=== PATIENT | male | born 1940 | race Caucasian/White ===

== ENCOUNTER 2016-07-29 15:54 | Emergency (ER) | payer MEDICARE, OTHER ==
[~2016-07-29] VITALS: Ht 175.3 cm; Wt 109.1 kg
[~2016-07-29 15:54] MED LIST: BETA1TAB19 PO; CHOL10008 PO; [UNRECOGNIZED DRUG - CODE] PO
[2016-07-29 16:04] VITALS: BP 138/85; PULSE 101; RESP 20; O2SAT 93
--- NOTE | 2016-07-29 16:13 | ED.REPORT ---
HPI-Dyspnea / Wheezing Date of Service Jul 29, 2016 ED Provider: Daniel Feliz MD Patient is a 76 year old male with a history of frequent pneumonia who presents to the ED complaining of L sided chest pain onset 2 weeks ago. Associated symptoms include SOB, fatigue, productive cough with yellow sputum, fever, and decreased appetite. He denies pleuritic pain, vomiting, diarrhea, or any other symptoms. Nursing Notes Stated Complaint: SHORTNESS OF BREATH,LEFT LUNG PAIN Chief Complaint: Respiratory Distress Nursing Notes Reviewed: Yes Allergies: Coded Allergies: No Known Allergies (Verified , 12/15/15) Scheduled Cholecalciferol (Vitamin D3) (Vitamin D3) 1,000 Unit Tab.chew 3,000 UNIT PO DAILY Levofloxacin (Levaquin) 750 Mg Tablet 750 MG PO DAILY Vit A/Vit C/Vit E/Zinc/Copper (Preservision Areds Tablet) 1 Each Tablet 2 EACH PO DAILY Scheduled PRN Hydrocodone-Acetaminophen 2.5-325 mg (Hydrocodone-Acetaminophen 2.5-325 mg) 1 Each Tablet 1 EACH PO Q4H PRN PRN For Pain General Time Seen by MD: 16:12 Chief Complaint Chest pain Hx Obtained From: Patient Onset Occurred: More than a week ago... (2 weeks) Symptom Duration: Since onset Similar Sx Previous: Yes Past Medical History Past Medical History 1. 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 2. History of pneumonia. Reports: Hypertension, Denies: Cancer, Congestive heart failure, Diabetes mellitus, Stroke Past Surgical History 1. Tonsillectomy. 2. Left rotator cuff repair. 3. Removal of spinal spurs. 4. Finger repair Reports: Cataract surgery Family History Mother of dementia. Father who of a [place]. Brother and sister with unknown history. 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 Alcohol Use: 1-3 per day Drug Use: Denies drug use Ambulatory Status Independent Review of Systems +decreased appetite Constitutional: Reports: Fatigue, Fever Respiratory: Reports: Prod cough, yellow, Shortness of breath, Denies: Pleuritic pain Cardiovascular: Reports: Chest pain Complete sys rev & neg: except as marked. GI: Denies: Diarrhea, Vomiting Physical Exam Initial Vital Signs Vital Signs (First) Date Time Temp Pulse Resp B/P Pulse Ox O2 Delivery O2 Flow Rate FiO2 07/29/16 16:04 37.4 101 20 138/85 93 Room Air Head / Eyes: Atraumatic, Normocephalic Abdomen / GI: Soft, Non-tender Skin: Warm, Dry Neurologic: Alert, Oriented, Nonfocal Psychiatric: Mood/affect normal, Behavior normal, Normal thought content General/Constitutional: Awake, Alert, Well developed Neck: Full range of motion Respiratory / Chest: Atraumatic, Breath sounds NL, Breath sounds = bilat, No respiratory distress Cardiovascular: Heart rate NL, Regular rhythm, Heart sounds NL Interpretation & Diagnostics Lab Results Interpretation Result Diagram: 07/29/16 1637 07/29/16 1637 Test 07/29/16 16:37 07/29/16 16:41 White Blood Count 5.7th/mm3 (3.8-10.1) Red Blood Count 4.82mil/mm3 (4.40-5.80) Hemoglobin 14.7g/dL (13.8-17.2) Hematocrit 42.2% (41.0-50.0) Mean Corpuscular Volume 87.6fL (81-100) Mean Corpuscular Hemoglobin 30.5pg (27.0-35.0) Mean Corpuscular Hemoglobin Concent 34.8% (32.0-37.0) Red Cell Distribution Width 13.2% (12.3-15.4) Platelet Count 204bil/L (150-400) Neutrophils (%) (Auto) 52.5% (40-74) Lymphocytes (%) (Auto) 31.7% (14-46) Monocytes (%) (Auto) 13.9% (4-12) Eosinophils (%) (Auto) 1.4% (0-5) Basophils (%) (Auto) 0.5% (0-3) Sodium Level 133mEq/L (134-144) Potassium Level 4.0mEq/L (3.5-5.2) Chloride Level 98mEq/L (97-108) Carbon Dioxide Level 22mmol/L (18-29) Blood Urea Nitrogen 17mg/dL (8-27) Creatinine 0.92mg/dL (0.76-1.27) Estimat Glomerular Filtration Rate 85mL/min (>59) Glucose Level 124mg/dL (60-99) Calcium Level 9.2mg/dL (8.5-10.1) Magnesium Level 1.8mg/dL (1.6-2.6) Total Bilirubin 0.4mg/dL (0.0-1.2) Aspartate Amino Transf (AST/SGOT) 18U/L (0-50) Alanine Aminotransferase (ALT/SGPT) 23U/L (0-44) Alkaline Phosphatase 95U/L (25-160) Troponin T < 0.010ug/L (0.0-0.011) Total Protein 6.9g/dL (6.4-8.4) Albumin 3.8g/dL (3.4-5.0) Hold Woods Top Tube Received (Received) ECG Interpretation ECG Interpretation: Sinus rate 91 Time: 16:43 Interpreted by: ED physician X-Ray Chest Interpretation Chest Xray Interpretation: IMPRESSION: Lingular and left lower lobe patchy opacity suggestive of pneumonia. Dictated by: Nalini Santiago M.D. on 07/29/2016 at 17:06 Approved by: Nalini Santiago M.D. on 07/29/2016 at 17:06 View: AP & lat Interpretation / Wet Read by: Interpret - Radiologist Re-Eval/Medical Decision Med Decision/Clinical Course CURB-65 Score=1 Re-Evaluation/Progress : Time of Eval: 17:57 Re-Evaluation/Progress Note: Discussed lab results, imaging results, and plan for discharge. Patient understands and agrees with plan. All questions addressed at this time. Counseled Regarding: Diagnosis, Lab results, Need for follow-up, When/why to return to ED Discharge & Departure Impression: Primary Impression: Community acquired pneumonia Disposition: Home Discharge Condition All VS Reviewed: Yes Condition: Stable Patient Instructions: Bacterial Pneumonia (GEN) Additional Instructions: Take antibiotic as prescribed. (Levaquin) Return to the ER if you are getting worse. Follow-up in a few days at the clinic if you are not much improved. Referrals: Marci Escalona MD (PCP) Scribe Attestation Portions of this note were transcribed by Ava Vernon. I, Dr. Feliz personally performed the history, physical exam and medical decision-making; I reviewed and confirmed the accuracy of the information in the transcribed note. Signed by: Ava Vernon 07/29/16, 9854 copies to: Marci Escalona MD, Kirk H MD Jul 29, 2016 16:13 AVA VERNON Jul 29, 2016 16:38
[2016-07-29 16:43] LABS: BASOPHILS % (AUTO) 0.5 % (0-3); EOSINOPHILS % (AUTO) 1.4 % (0-5); MONOCYTES % (AUTO) 13.9 % (4-12); Mean Corpuscular Hemoglobin 30.5 pg (27.0-35.0); Mean Corpuscular Volume 87.6 fL (81-100); NEUTROPHILS % (AUTO) 52.5 % (40-74); Platelet Count 204 bil/L (150-400)
--- NOTE | 2016-07-29 17:12 | DRSVH ---
PROCEDURE: X-RAY CHEST, TWO VIEWS ([id number]) INDICATIONS: cough, left chest pain TECHNIQUE: 2 views of the chest were acquired. COMPARISON: [facility], CR, XR CHEST 2VW, 06/19/2016, 11:19. FINDINGS: Surgical changes and devices: None. Lungs and pleura: Patchy opacities present within the lingula and left lower lobe. Mediastinum: Mediastinal contours are normal. Heart size is normal. Bones and chest wall: No suspicious bony abnormalities. Soft tissues appear unremarkable. IMPRESSION: Lingular and left lower lobe patchy opacity suggestive of pneumonia. Dictated by: Nalini Santiago M.D. on 07/29/2016 at 17:06 Approved by: Nalini Santiago M.D. on 07/29/2016 at 17:06
[2016-07-29 17:17] LABS: Magnesium 1.8 mg/dL (1.6-2.6)
[2016-07-29 17:18] LABS: TROPONIN T < 0.010 ug/L (0.0-0.011)
[2016-07-29 17:52] VITALS: BP 144/66; PULSE 83; RESP 22; O2SAT 94
[2016-07-29] MEDS ORDERED: levoFLOXacin 750 mg Tablet PO ONE (18:05)
[2016-07-29] MEDS ORDERED: LEVO750T9 PO (18:08)
[2016-07-29 18:21] VITALS: BP 144/66; PULSE 83; RESP 22; O2SAT 94
== END 2016-07-29 18:21 | disposition home or self-care (01) ==
LOC: SED 15:54
DX: J18.9 Pneumonia, unspecified organism (principal); I10 Essential (primary) hypertension; Z87.891 Personal history of nicotine dependence